=== PATIENT | male | born 1970 | race Caucasian/White ===

== ENCOUNTER 2019-11-24 04:23 | Emergency (ER) | payer OTHER, SELFPAY ==
--- NOTE | ~2019-11-24 | XR_ITS ---
EXAMINATION: XR clavicle LT EXAM DATE: 11/24/2019 05:04 INDICATION: Initial encounter following injury, with pain of the left clavicle. TECHNIQUE: 2 frontal projections left clavicle with different degrees of tilt. There is no prior st udy for comparison. FINDINGS: There is a left midclavicular shaft fracture with comminution. It is completely inferiorly displaced and with a gap between the fracture fragments. Acute closed posttraumatic fracture. Recomm end orthopedic consult. IMPRESSION: Acute displaced left mid clavicular shaft fracture. Reviewed, dictated and finalized at location A.
[2019-11-24 04:31] VITALS: BP 150/109; PULSE 98; RESP 18; TEMP 36.9; O2SAT 99
[2019-11-24 05:30] VITALS: BP 143/96; PULSE 84; RESP 22; O2SAT 96
--- NOTE | 2019-11-24 05:56 | ED.UPPEXIN ---
HPI - Extremity Injury (Upper) General Chief Complaint: Extremity Injury, Upper Stated Complaint: LEFT COLLAR BONE INJURY Time Seen by Provider: 11/24/19 04:32 Source: patient Mode of arrival: ambulatory Limitations: no limitations History of Present Illness HPI narrative: 49-year-old with no major medical problems here with the complaints of pain to his left clavicle. Patient states that he sat on the barstool fell asleep and fell on the floor. He denies hitting his head. No history of loss of consciousness. Denies any other injuries. MD complaint: injury to: left Onset (ago): hour(s) (2) Other Extremity Injury: Left: shoulder Other injuries: none Handedness: right Place: home Severity: moderate Severity scale (1-10): 7 Relieving factors: immobilization Exacerbating factors: none Context: fall Associated symptoms: denies other symptoms Related Data Home Medications Medication Instructions Recorded Confirmed cetirizine [Zyrtec] 10 mg PO DAILY 11/24/19 pantoprazole 40 mg PO QAM 11/24/19 11/24/19 Allergies Allergy/AdvReac Type Severity Reaction Status Date / Time hydromorphone [From Dilaudid] Allergy Unknown Verified 11/24/19 04:35 Penicillins Allergy Unknown Verified 11/24/19 04:36 Review of Systems Review of Systems: All systems reviewed & are unremarkable except as noted in HPI and below Constitutional: Constitutional: Reports no additional constitutional complaints Eyes: Eyes: Reports as per HPI ENT: Reports as per HPI Cardiovascular: Cardiovascular: Reports no additional cardiovascular complaints Respiratory: Respiratory: Reports no additional respiratory complaints Gastrointestinal: Gastrointestinal: Reports no additional gastrointestinal complaints Musculoskeletal: Musculoskeletal: Reports as per HPI [facility] Social History Social History Smoking status: Never smoker Second hand tobacco smoke exposure: No Alcohol intake: current Exam Narrative: Exam Narrative: GENERAL: Well-appearing, well-nourished, and in mild distress sec to pain HEAD: Normocephalic, atraumatic. EYES: PERRLA and EOMI. ENT: Nares clear, no rhinorrhea or epistaxis. Mucous membranes moist. NECK: Supple. CHEST: Clear to auscultation. No respiratory distress.Deformity of the left clavicle HEART: Regular rate and rhythm. No murmur heard. Normal peripheral pulses.. EXTREMITIES: Normal range of motion. No edema. SKIN: Warm, dry, no rash. NEURO: No focal deficits. Alert and oriented x3. PSYCH: Normal mood and affect. Course Vital Signs Vital signs: Vital Signs Temperature 36.9 C 11/24/19 04:31 Pulse Rate 98 11/24/19 04:31 Respiratory Rate 18 11/24/19 04:31 Blood Pressure 150/109 H 11/24/19 04:31 Pulse Oximetry 99 11/24/19 04:31 Temperature 36.9 C 11/24/19 04:31 Pulse Rate 98 11/24/19 04:31 Respiratory Rate 18 11/24/19 04:31 Blood Pressure 150/109 H 11/24/19 04:31 Pulse Oximetry 99 11/24/19 04:31 MDM - Extremity Injury (Upper) MDM Narrative Medical decision making narrative: Inform patient about his x-ray findings. Placed him in sling. Patient wanted to follow-up with Dr. negrete I did talk to Dr. Guerrero who recommended to call their office this morning for a follow-up. Patient does feel comfortable going home with pain medication. Imaging Data My impression: left mid shaft clavicle fracture . Discharge Plan Discharge Clinical Impression: Fracture of clavicle Qualifiers: Encounter type: initial encounter Clavicle location: shaft Fracture type: closed Fracture alignment: displaced Laterality: left Qualified Code(s): S42.022A - Displaced fracture of shaft of left clavicle, initial encounter for closed fracture Instructions: Clavicle Fracture (ED) Prescriptions: New hydrocodone-acetaminophen [[place]] 5-325 mg tablet 1 tablet PO Q6H PRN (Reason: pain) Qty: 20 RF: 0 No Action pantoprazole 40 mg Tablet,Delayed Release (Dr/Ec) 40 mg PO QAM RF: 0 Zy
[2019-11-24 06:17] VITALS: TEMP 36.7
[2019-11-24 06:40] VITALS: BP 140/92; PULSE 87; RESP 19; TEMP 36.7; O2SAT 100
== END 2019-11-24 06:42 | disposition home or self-care (01) ==
PROVIDERS: Emergency Provider Family Medicine; PCP Family Medicine
DX: S42.022A Displaced fracture of shaft of left clavicle, initial encounter for closed fracture (principal); W07.XXXA Fall from chair, initial encounter
CPT/HCPCS: 73000; 96372; 99284; A4565; J3010